=== PATIENT | male | born 1985 | race African-American/Black ===

== ENCOUNTER 2017-11-28 11:04 | Emergency (ER) | payer OTHER ==
[~2017-11-28] VITALS: Ht 175.3 cm; Wt 93.5 kg
[~2017-11-28 11:04] MED LIST: ALPRAZOLAM0.5 MG PO; ATIVAN1 MG PO; BUNAVAIL BC; CLONAZEPAM1 MG PO; CYMBALTA30 MG PO; CYMBALTA60 MG PO; DEPAKOTE ER250 MG PO; DEPAKOTE ER500 MG PO; DIVALPROEX SOD250 MG PO; DULOXETINE HCL60 MG PO; EFFEXOR XR150 MG PO; EFFEXOR XR75 MG PO; GABAPENTIN300 MG PO; GABAPENTIN400 MG PO; GABAPENTIN600 MG PO; GABAPENTIN800 MG PO; LEXAPRO10 MG PO; LIBRIUM10 MG PO; LINZESS290 MCG PO; LORAZEPAM1 MG PO; LYRICA300 MG PO; MODAFINIL100 MG PO; NEURONTIN300 MG PO; NEURONTIN600 MG PO; NEXIUM40 MG PO; PROVIGIL200 MG PO; QUETIAPINE FUM400 MG PO; RESTORIL30 MG PO; SEROQUEL200 MG PO; SEROQUEL400 MG PO; TEGRETOL200 MG PO; TEMAZEPAM30 MG PO; VENLAFAXINE HC150 MG PO; ZEGERID40 MG PO
[2017-11-28 11:32] VITALS: BP 142/100
== END 2017-11-28 11:36 | disposition left against medical advice (07) ==
LOC: EME 11:04
DX: R07.9 Chest pain, unspecified (principal); Z53.21 Procedure and treatment not carried out due to patient leaving prior to being seen by health care provider
CPT/HCPCS: 80048; 84484; 85027; 93005

== ENCOUNTER 2017-12-16 07:25 | Emergency (ER) | payer OTHER ==
[~2017-12-16] VITALS: Ht 177.8 cm; Wt 98.3 kg
[2017-12-16] MEDS ORDERED: PRINIVIL5 MG PO (08:43)
[2017-12-16] MEDS ORDERED: EFFEXOR XR150 MG PO (08:43)
[2017-12-16] MEDS ORDERED: GABAPENTIN800 MG PO (08:43)
[2017-12-16 08:56] VITALS: BP 139/93
== END 2017-12-16 08:58 | disposition home or self-care (01) ==
LOC: EME 07:25
DX: F41.9 Anxiety disorder, unspecified (principal); Z76.0 Encounter for issue of repeat prescription; F31.9 Bipolar disorder, unspecified; F32.9 Major depressive disorder, single episode, unspecified; K21.9 Gastro-esophageal reflux disease without esophagitis; I10 Essential (primary) hypertension; F17.200 Nicotine dependence, unspecified, uncomplicated; Z88.5 Allergy status to narcotic agent; Z88.0 Allergy status to penicillin; Z88.8 Allergy status to other drugs, medicaments and biological substances
CPT/HCPCS: 99281; 99283

== ENCOUNTER 2018-01-05 05:36 | Emergency (ER) | payer OTHER ==
[~2018-01-05] VITALS: Ht 177.8 cm; Wt 96.0 kg
[~2018-01-05 05:36] MED LIST changes: +PRINIVIL5 MG PO
[2018-01-05] MEDS ORDERED: ATIVAN2 MG PO (07:40)
[2018-01-05] MEDS ORDERED: LIDODERM 5% P1 PATCH TD (07:40)
[2018-01-05 07:53] VITALS: BP 111/79
== END 2018-01-05 07:55 | disposition home or self-care (01) ==
LOC: EME 05:36
DX: M54.5 Low back pain (principal); G89.29 Other chronic pain; F41.9 Anxiety disorder, unspecified; F31.9 Bipolar disorder, unspecified; Z88.5 Allergy status to narcotic agent; Z88.0 Allergy status to penicillin; F17.200 Nicotine dependence, unspecified, uncomplicated
CPT/HCPCS: 99281; 99283

== ENCOUNTER 2018-01-21 03:30 | Emergency (ER) | payer OTHER ==
[~2018-01-21] VITALS: Ht 177.8 cm; Wt 100.0 kg
[2018-01-21 03:30] VITALS: BP 127/82
[~2018-01-21 03:30] MED LIST changes: +ATIVAN2 MG PO; +LIDODERM 5% P1 PATCH TD
[2018-01-21 04:36] LABS: CHLORIDE 106 mEq/L (99-109); POTASSIUM 3.8 mEq/L (3.7-5.4); SODIUM 140 mEq/L (136-147)
[2018-01-21 04:39] LABS: GLUCOSE 86 mg/dL (70-99)
[2018-01-21 04:41] LABS: TOTAL BILIRUBIN 0.3 mg/dL (0.0-1.0)
[2018-01-21 04:42] LABS: ALKALINE PHOSPHATASE 77 IU/L (3-129); SERUM ETHYL ALCOHOL < 10 mg/dL
[2018-01-21 04:43] LABS: CREATININE 0.9 mg/dL (0.6-1.3); GFR ESTIMATE (CALCULATED) > 59 mL/min/ (58.99-99999)
[2018-01-21 04:44] LABS: AST (GOT) 19 IU/L (2-34); UREA NITROGEN (BUN) 15 mg/dL (9-23)
[2018-01-21 04:45] LABS: ALT (GPT) 27 IU/L (3-49)
[2018-01-21 04:48] LABS: HEMATOCRIT 40.3 % (38.0-50.0); MCH 30.4 PG (29.0-34.0); MCHC 34.7 G/DL (30.0-36.0); MCV 87.6 FL (86-99); PLATELET COUNT 269 K/uL (156-360); RBC DIS.WIDTH-CV 13.2 % (11.8-14.6); RBC DIS.WIDTH-SD 42.6 % (39-53); WHITE BLOOD COUNT 6.2 K/uL (4.1-10.2)
[2018-01-21 06:00] LABS: AMPHETAMINE NEGATIVE (500 ng/mL); BENZODIAZEPINES PRESUMPTIVE POSITIVE (150 ng/mL); COCAINE NEGATIVE (150 ng/mL); METHADONE PRESUMPTIVE POSITIVE (200 ng/mL); METHAMPHETAMINE NEGATIVE (500 ng/mL); OPIATES (MORPHINE) PRESUMPTIVE POSITIVE (100 ng/mL); PHENCYCLIDINE NEGATIVE (25 ng/mL); THC CANNABINOIDS NEGATIVE (50 ng/mL); TRICYCLIC ANTIDEPRESSANTS PRESUMPTIVE POSITIVE (300 ng/mL)
[2018-01-21 06:01] LABS: BARBITURATES NEGATIVE (200 ng/mL); BUPRENORPHINE PRESUMPTIVE POSITIVE (10 ng/mL); OXYCODONE NEGATIVE (100 ng/mL); PROPOXYPHENE NEGATIVE (300 ng/mL)
[2018-01-21 06:48] LABS: BENZODIAZEPINES, URINE SCREEN POSITIVE (200 ng/mL)
== END 2018-01-21 05:52 | disposition left against medical advice (07) ==
LOC: EME → EDBD 03:30 → EME 05:52
PROVIDERS: Emergency Medicine
DX: F41.1 Generalized anxiety disorder (principal); F19.10 Other psychoactive substance abuse, uncomplicated; F43.10 Post-traumatic stress disorder, unspecified; F31.9 Bipolar disorder, unspecified; F32.9 Major depressive disorder, single episode, unspecified; I10 Essential (primary) hypertension; K21.9 Gastro-esophageal reflux disease without esophagitis; F17.200 Nicotine dependence, unspecified, uncomplicated; Z88.1 Allergy status to other antibiotic agents; Z88.5 Allergy status to narcotic agent; Z88.0 Allergy status to penicillin
CPT/HCPCS: 80053; 84999; 85027; 90839; 99281; 99284; G0480

== ENCOUNTER 2018-06-13 08:21 | Emergency (ER) | payer OTHER ==
[~2018-06-13] VITALS: Ht 175.3 cm; Wt 90.9 kg
[2018-06-13] MEDS ORDERED: LATUDA60 MG PO (08:35)
[2018-06-13] MEDS ORDERED: LYRICA100 MG PO ×2 (08:35→09:21)
[2018-06-13] MEDS ORDERED: XANAX1 MG PO ×2 (08:37→09:21)
[2018-06-13 09:16] LABS: AMPHETAMINE NEGATIVE (500 ng/mL); BARBITURATES NEGATIVE (200 ng/mL); BENZODIAZEPINES PRESUMPTIVE POSITIVE (150 ng/mL); BUPRENORPHINE NEGATIVE (10 ng/mL); COCAINE PRESUMPTIVE POSITIVE (150 ng/mL); METHADONE PRESUMPTIVE POSITIVE (200 ng/mL); METHAMPHETAMINE NEGATIVE (500 ng/mL); OPIATES (MORPHINE) PRESUMPTIVE POSITIVE (100 ng/mL); OXYCODONE NEGATIVE (100 ng/mL); PHENCYCLIDINE NEGATIVE (25 ng/mL); PROPOXYPHENE NEGATIVE (300 ng/mL); THC CANNABINOIDS PRESUMPTIVE POSITIVE (50 ng/mL); TRICYCLIC ANTIDEPRESSANTS NEGATIVE (300 ng/mL)
[2018-06-13] MEDS ORDERED: GABAPENTIN800 MG PO (09:21)
[2018-06-13 09:54] VITALS: BP 134/81
[2018-06-13 10:14] LABS: BENZODIAZEPINES, URINE SCREEN POSITIVE (200 ng/mL)
== END 2018-06-13 09:56 | disposition home or self-care (01) ==
LOC: EME 08:21
PROVIDERS: Emergency Medicine
DX: F41.9 Anxiety disorder, unspecified (principal); F32.9 Major depressive disorder, single episode, unspecified; Z76.0 Encounter for issue of repeat prescription; F17.200 Nicotine dependence, unspecified, uncomplicated; F60.3 Borderline personality disorder; I10 Essential (primary) hypertension; K21.9 Gastro-esophageal reflux disease without esophagitis; Z88.5 Allergy status to narcotic agent; Z88.0 Allergy status to penicillin; Z86.69 Personal history of other diseases of the nervous system and sense organs
CPT/HCPCS: 84999; 90839; 99281; 99284